=== PATIENT | female | born 1935 | race Caucasian/White ===

== ENCOUNTER 2017-02-25 16:58 | Emergency (ER) | payer MEDICARE ==
[~2017-02-25] VITALS: Ht 170.2 cm; Wt 82.0 kg
[2017-02-25 16:59] VITALS: BP 133/63; PULSE 76; RESP 18; TEMP 98.1; O2SAT 96
--- NOTE | 2017-02-25 17:44 | PD ---
HPI Chief Complaint: Back/ Neck Pain or Injury Time Seen by Provider: 17:39 Travel History International Travel<30 days: No Contact w/Intl Traveler<30days: No Traveled to known affect area: No History of Present Illness HPI 81-year-old female presents emergency Department with sudden onset lower lumbar spine with radiation to the right hip which started yesterday after having breakfast. Patient states her pain is 9 out of 10, and worse with trying to get up and bearing weight. Patient states that she sitting or lying down the pain is improved. She denies numbness, tingling, or bowel or bladder issues. Patient states history of low back pain in the past but nothing to this extent. Patient reportedly has had "bulging disks" in the past, but never sciatica like this. She is allergic to iodine. PFSH Past Medical History ?: Not Social History Alcohol Use: Yes Tobacco Use: No Substance Use: No Allergies-Medications (Allergen,Severity, Reaction): Coded Allergies: iodine (Verified Allergy, Severe, Anaphylaxis, 02/25/17) Review of Systems Except as stated in HPI: all other systems reviewed are Neg General / Constitutional: No: Fever Eyes: No: Visual changes HENT: No: Headaches Cardiovascular: No: Chest Pain or Discomfort Respiratory: No: Shortness of Breath Gastrointestinal: No: Abdominal Pain Genitourinary: No: Dysuria Musculoskeletal: Positive: Arthralgias, Limited ROM, Pain Skin: No Rash Neurologic: No: Weakness Psychiatric: No: Depression Endocrine: No: Polydipsia Hematologic/Lymphatic: No: Easy Bruising Physical Exam Narrative GENERAL: Patient appears in mild to moderate distress. SKIN: Warm and dry. Normal color. Normal turgor. No rash. HEAD: Atraumatic. Normocephalic. EYES: Pupils equal and round. No scleral icterus. No injection or drainage. ENT: No nasal bleeding or discharge. Mucous membranes pink and moist. Pharynx is clear. Airway is patent. NECK: Trachea midline. Supple and nontender. CARDIOVASCULAR: Regular rate and rhythm. RESPIRATORY: No accessory muscle use. Clear to auscultation. Breath sounds equal bilaterally. GASTROINTESTINAL: Abdomen soft, non-tender, nondistended. Hepatic and splenic margins not palpable. MUSCULOSKELETAL: Extremities without clubbing, cyanosis, or edema. No obvious deformities. Patient has point tenderness in the right lower lumbar spine at the top of the sacroiliac notch. Negative straight leg raise pain bilaterally. Deep tendon reflexes are 2+ bilaterally in both patellar and Achilles tendons. Plantar flexion and dorsiflexion is intact. NEUROLOGICAL: Awake and alert. No obvious cranial nerve deficits. Motor grossly within normal limits. Five out of 5 muscle strength in the arms and legs. Normal speech. PSYCHIATRIC: Appropriate mood and affect; insight and judgment normal. Data Data Last Documented VS Vital Signs Date Time Temp Pulse Resp B/P (MAP) Pulse Ox O2 Delivery O2 Flow Rate FiO2 02/25/17 16:59 98.1 76 18 133/63 (86) 96 Room Air Orders Orders Ketorolac Inj (Toradol Inj) (02/25/17 17:45) Dexamethasone Inj (Decadron Inj) (02/25/17 17:45) Spine, Lumbar - Ltd (Ap & Lat) (02/25/17 17:39) [facility] Medical Decision Making Medical Screen Exam Complete: Yes Emergency Medical Condition: Yes Differential Diagnosis Compression fracture. Sacroiliitis. Sciatica. Narrative Course Patient is given 60 mg Toradol IM as well as Decadron 10 mg IM. X-rays PA and lateral of the lumbar spine are ordered. X-ray shows no acute process. No signs of compression fracture. Patient will be continued on prednisone 20 mg twice a day 7 days. Patient given Flexeril 5 mg up to 3 times a day when necessary #15. Patient is given Lortab 5/325 mg tabs one every 6 hours when necessary pain #12. Patient is use heat followed by ice followed by follow-up with primary care physician or orthopedist. She can return to emergency department as needed for worsening symptoms. Diagnosis Primary Impression: Lumbago with sciatica, left side Qualified Codes: M54.42 - Lumbago with sciatica, left side Referrals: Orthopedist Patient Instructions: General Instructions, Lumbar Radiculopathy (ED), Prednisone (By mouth) Additional Instructions: X-ray shows no acute process. No signs of compression fracture. Patient will be continued on prednisone 20 mg twice a day 7 days. Patient given Flexeril 5 mg up to 3 times a day when necessary #15. Patient is given Lortab 5/325 mg tabs one every 6 hours when necessary pain #12. Patient is use heat followed by ice followed by follow-up with primary care physician or orthopedist. She can return to emergency department as needed for worsening symptoms. Med/Other Pt SpecificInfo: Prescription(s) given Scripts Hydrocodone-Acetaminophen (Hydrocodone-Acetaminophen) 5-325 mg Tab 1 TAB PO Q6H Y for PAIN, #12 TAB 0 Refills Prov: Wayne Maldonado MD 02/25/17 Cyclobenzaprine (Flexeril) 5 Mg Tab 5 MG PO TID for Muscle Spasm, #15 TAB 0 Refills Prov: Wayne Maldonado MD 02/25/17 Prednisone (Prednisone) 20 Mg Tab 20 MG PO BID for 7 Days, #14 TAB 0 Refills Prov: Wayne Maldonado MD 02/25/17 Disposition: 01 DISCHARGE HOME Condition: Stable Floyd Gamez Feb 25, 2017 17:44
[2017-02-25] MEDS ORDERED: KETOROLAC TROMETHAMINE 60 MG/2 ML (IM) VIAL IM ONE (17:45)
[2017-02-25] MEDS ORDERED: DEXAMETHASONE SOD PHOS 20 MG/5 ML VIAL IM ONE (17:45)
--- NOTE | 2017-02-25 18:25 | RADRPT ---
EXAM DATE/TIME: 02/25/2017 18:03 [facility] COMPARISON: No previous studies available for comparison. INDICATIONS : Low back pain x 2 days. MEDICAL HISTORY : None. SURGICAL HISTORY : None. ENCOUNTER: Initial ACUITY: 1 day PAIN SCORE: 10/10 LOCATION: Lumbar spine. FINDINGS: AP and lateral views lumbar spine show a minimal grade 1 anterolisthesis of L4 on L5. Alignment is ot herwise normal. Bony hypertrophy of the facets at L5-S1 with minimal disc space narrowing but no oste ophyte production. Remaining disc spaces are preserved. Vertebral body heights are preserved. Calcifi ed plaque involving the abdominal aorta. CONCLUSION: Minimal degenerative changes at L5-S1. No acute abnormality. Asif Whiting Jr., MD on February 25, 2017 at 18:23 Board Certified Radiologist. This report was verified electronically.
[2017-02-25] MEDS ORDERED: CYCL5TAB PO (18:37)
[2017-02-25] MEDS ORDERED: HYDR-3516 PO (18:37)
[2017-02-25] MEDS ORDERED: PRED20 PO (18:37)
== END 2017-02-25 18:49 | disposition home or self-care (01) ==
LOC: NEPK 16:58
DX: M54.42 Lumbago with sciatica, left side (principal); M51.37 Other intervertebral disc degeneration, lumbosacral region
CPT/HCPCS: 72100; 96372; 99284; J1100; J1885